=== PATIENT | male | born 1945 | race Caucasian/White ===

== ENCOUNTER → 2016-07-22 | Outpatient (CLI) | payer MEDICARE, BC ==
[~2016-07-22] MED LIST: ASPIRIN 81M81 MG/TA2 PO; ATIVAN 0.50.5 MG/TAB PO; CALCIUM 600600 M1 PO; CALCIUM 600600 M2 PO; CALCIUM 600MG+D1 TAB PO; COLACE 100100 MG/CAP PO; FLOVENT DI50 MCG/Act IH; LORTAB 5/500 501 TAB PO; MELATONIN5 M1 PO; MULTIPLE VITAMI1 CAP PO; NITROSTAT0.4 MG/TAB SL; OMEGA-3 FISH1200 MG PO; PRAVACHOL 20MG20 MG PO; PRILOSEC 20MG20 MG PO; PRINIVIL20 MG PO; TENORMIN 2525 MG/TAB PO; TIAZAC120 MG PO; TOPROL XL 25MG25 MG PO; VITAMIND3 5000 PO; [UNRECOGNIZED DRUG - OTHER] PO
== END ==
LOC: COL.RAD 07:22
DX: K21.9 Gastro-esophageal reflux disease without esophagitis (principal)
CPT/HCPCS: A9541

== ENCOUNTER → 2018-08-31 | Outpatient (CLI) | payer MEDICARE, BC | LOC: COL.RAD 08:07 | DX: N28.1 Cyst of kidney, acquired (principal); R80.8 Other proteinuria ==